=== PATIENT | female | born 1990 | race American Indian/Alaskan Native ===

== ENCOUNTER 2017-10-18 14:57 | Observation (INO) | payer OTHER ==
[2017-10-18] MEDS ORDERED: NACL 0.9% 1000 ML 1,000 ML IV ONE ×2 (15:46→17:10)
[2017-10-18] MEDS ORDERED: ZOFRAN IV ONE (15:46)
[2017-10-18] MEDS ORDERED: TYLENOL PO ONE (15:46)
--- NOTE | 2017-10-18 16:22 | Emergency Department Report ---
HPI - General Chief Complaint: Abdominal Pain Time Seen by Provider: 10/18/17 15:36 - HPI HPI: The patient is a 27-year-old female , EGA unknown, presents for evaluation of abdominal pain. The patient reports abdominal pain since awakening from sleep this morning, approximately 6 hours prior to my evaluation. She states her abdominal pain has been constant since onset, 10/10 in severity, crampy in quality, and is exacerbated with dry heaving. She has a space associated nausea and multiple episodes of nonbilious, nonbloody emesis. The patient denies fever, chills, night sweats, diarrhea, blood in the stool, dark tarry stool, dysuria, hematuria, flank pain, genital discharge, inability to pass flatus. ED Past Medical Hx - Past Medical History Previous Medical History?: Yes Additional medical history: childbirth - Surgical History Past Surgical History?: No - Social History Smoking Status: Never Smoker Substance Use Type: Alcohol ED Review of Systems ROS: Stated complaint: ABDOMINAL PAIN Other details as noted in HPI Constitutional: denies: fever ENT: denies: throat or neck pain Respiratory: denies: cough, shortness of breath Cardiovascular: denies: chest pain Endocrine: denies unexplained weight loss or gain Gastrointestinal: reports: abdominal pain, nausea Genitourinary: denies: dysuria Musculoskeletal: denies: leg swelling Skin: denies: rash Neurological: denies: headache Hematological/Lymphatic: denies: easy bleeding or easy bruising Psych: denies sadness or hopelessness Physical Exam - Physical Exam Vital Signs: Vital Signs 10/18/17 10/18/17 15:38 16:00 Temperature 97.9 F 97.6 F Pulse Rate 94 H 88 Respiratory 16 18 Rate Blood Pressure 86/52 Blood Pressure 90/60 [Right] O2 Sat by Pulse 99 97 Oximetry Physical Exam: General: well-nourished, well-developed, no acute distress Head: Normocephalic, atraumatic Eyes: normal sclera ENT: Mucous membranes are pale and dry Neck: No neck stiffness, no cervical adenopathy Respiratory: Breath sounds equal bilaterally, no wheezing, rales, or rhonchi Cardio: S1 and S2 present, no murmurs, rubs, gallops, capillary refill is delayed Abdomen: Normoactive bowel sounds, soft abdomen, epigastric tenderness to palpation present, no rigidity, no guarding or rebound tenderness Chest WALL/Back: No tenderness to palpation of the chest wall, no CVA tenderness with percussion Musc: No pitting edema Skin: No rash Neuro: no facial drooping, normal speech Psych: Normal affect ED Course Vital Signs 10/18/17 10/18/17 15:38 16:00 Temperature 97.9 F 97.6 F Pulse Rate 94 H 88 Respiratory 16 18 Rate Blood Pressure 86/52 Blood Pressure 90/60 [Right] O2 Sat by Pulse 99 97 Oximetry ED Medical Decision Making - Lab Data Result diagrams: 10/18/17 15:38 10/18/17 17:42 - Medical Decision Making The patient was seen and examined by myself. The patient is placed on a rn cardiac and continuous pulse ox. On initial evaluation, the patient was found to be in no distress. Evaluation orders are placed. IV access is established and the patient is given 1 L normal saline fluid bolus and Zofran for nausea, and a tablet of Tylenol for her pain. Lab results revealed elevated hCG level of 9000 elevated lactic acid of 6,, and leukocytosis, WBC 17, and otherwise labs were unrevealing. While awaiting ultrasound of the pelvis, the patient developed hypotension and significant tachycardia. The patient was given multiple normal saline fluid boluses. Multiple bedside reassessments were performed to assess patient's responsiveness to fluids resuscitation. A bedside ultrasound was performed by myself and revealed intra-abdominal fluid collection. As the patient is hypotensive with fluid in the abdomen, the on- call CHILD CARE ATTENDANT was contacted due to concern for ruptured ectopic . Dr. Martines presented to the emergency department and evaluated the patient at bedside. He agreed that the patient was exhibiting symptoms and signs of ectopic , and he agreed to take the patient to the OR for definitive treatment of her ectopic . 4 units of PRBCs were ordered. Formal ultrasound of the pelvis confirmed ruptured ectopic . Red Blood cell transfusion was initiated in the emergency department and the patient was admitted to the OR emergently. Critical Care Time: Yes Critical care time in (mins) excluding proc time.: 35 Critical care attestation.: Due to the critical nature of this patients presentation, which necessitated multiple bedside assessments, manipulation and supportive measures to prevent further life threatening deterioration, I would like to bill for a total of 35 minutes of critical care time. This was exclusive of any separately billable procedures. Critical Care Time: 35 min ED Disposition Clinical Impression: Ruptured ectopic , Hemorrhagic shock, Acute generalized abdominal pain Disposition: DC-09 OP ADMIT IP TO THIS HOSP Is pt being admited?: Yes Does the pt Need Aspirin: Yes Condition: Critical Instructions: Abdominal Pain (ED) Referrals: PRIMARY CARE, [Primary Care Provider] - 3-5 Days Time of Disposition: 17:04
[2017-10-18 17:05] LABS: Basophils # (Auto) 0.1 K/mm3 (0.0-0.1); Basophils % (Auto) 0.4 % (0.0-1.8); Eosinophils % (Auto) 0.1 % (0.0-4.3); Hematocrit 34.2 % (30.3-42.9); Hemoglobin 11.3 gm/dl (10.1-14.3); Lymphocytes # (Auto) 2.3 K/mm3 (1.2-5.4); Lymphocytes % (Auto) 12.9 % (13.4-35.0); Mean Corpuscular HGB Conc 33 % (30-34); Mean Corpuscular Hemoglobin 31 pg (28-32); Mean Corpuscular Volume 94 fl (79-97); Monocytes # (Auto) 1.4 K/mm3 (0.0-0.8); Monocytes % (Auto) 7.7 % (0.0-7.3); Platelet Count 291 K/mm3 (140-440); Red Blood Count 3.63 M/mm3 (3.65-5.03); Red Cell Distribution Width 13.7 % (13.2-15.2)
[2017-10-18] MEDS ORDERED: NACL 0.9% 500 ML 500 ML IV ONE (17:46)
[2017-10-18 18:01] LABS: INR 1.2 (0.87-1.13)
[2017-10-18 18:02] LABS: Partial Thromboplastin Time 25.6 Sec. (24.2-36.6)
[2017-10-18 18:08] LABS: BUN/Creatinine Ratio 16; Blood Urea Nitrogen 13 mg/dL (7-17); Calcium 9.6 mg/dL (8.4-10.2); Hemolysis Index 5; Lipase 20 units/L (13-60)
[2017-10-18 18:10] LABS: Alanine Aminotransferase 8 units/L (7-56); Albumin 4.2 g/dL (3.9-5)
--- NOTE | 2017-10-18 18:11 | Short Stay Summary ---
Short Stay Documentation Date of service: 10/18/17 Narrative H&P: C/O: Ruptured ectopic 27-year-old at ~ 3 wks via LMP presents with acute onset abdominal pain since early this AM per patient, she has positive test with beta-hCG ~ 9,000. In the emergency room, patient became acutely hypotensive with blood pressure systolic in the ~ 60s; she was acutely hydrated. Ultrasound shows hemoperitoneum, unable to locate ectopic at this time due to complex fluid collection in the abdomen. Removing hematocrit is ~ 11/34. SBP at this time is in the 100's Gynhx: Remarkable per patient Med/Sughx:None Meds:None ALL:NKDA On exam, she has an acute abdomen A: Ruptured ectopic -?Site unknown at this time P: -Will start transfusion of blood at this time -She has been consented -Proceed to do OR once available - History Past Medical History: No medical history Past Surgical History: No surgical history Social history: single, full code, no smoking - Allergies and Medications Current Medications: Allergies No Known Allergies Allergy (Unverified 10/18/17 15:38) Active Medications Sodium Chloride (Nacl 0.9% 1000 Ml) 1,000 mls @ 999 mls/hr IV BOLUS ONE Stop: 10/18/17 18:10 Piperacillin Sod/Tazobactam Sod (Zosyn/Ns 3.375gm/50ml) 3.375 gm in 50 mls @ 100 mls/hr IV Q6HR KATIE - Physical exam General appearance: severe distress Lungs: Clear to auscultation, Normal air movement Heart: Regular rate, Normal S1, Normal S2 Gastrointestinal: tenderness, guarding Female Genitourinary: deferred Extremities: no ischemia - Brief post op/procedure progress note Date of procedure: 10/18/17 Pre-op diagnosis: ectopic Post-op diagnosis: other (right cornual ectopic) Procedure: Laparoscopic excision of cornual ectopic Anesthesia: GETA Findings: Significant amount of hemoperitoneum, right cornual ectopic Surgeon: ZACARIAS CUENCA Estimated blood loss: other (2000 mL) Pathology: list (ectopic pieces) Specimen disposition: to lab Condition: stable - Hospital course Hospital course: Patient is status post Laparoscopic excision of right cornual ectopic and evacuation of hemoperitoneum. Patient had 2 liters of hemoperitoneum, she received 2 units of packed red blood cells and 900 mL of cell saver back Patient was admitted to the floor in stable condition for Observation. Postoperative course was unremarkable She is ambulating without difficulty, pain well controlled, adequate bowel bladder function. Discharge follow-up with her primary care physician in 3-5 days - Disposition Condition at discharge: Poor Disposition: DC-01 TO HOME OR SELFCARE - Discharge Diagnoses (1) Status post laparoscopic procedure Status: Acute (2) , ectopic, cornual or cervical Status: Acute (3) Hemoperitoneum due to rupture of right tubal ectopic Status: Acute (4) Anemia associated with acute blood loss Status: Acute Short Stay Discharge Plan Activity: advance as tolerated, no driving until cleared by PCP (no driving on narcotic), other (pelvic rest x 2 weeks) Weight Bearing Status: Weight Bear as Tolerated Diet: regular Wound: open to air, remove dressing (remove dressing tomorrow) Follow up with: PRIMARY CARE, [Primary Care Provider] - 3-5 Days Prescriptions: HYDROcodone/ACETAMINOPHEN [[place] 5-325 Tablet] 1 each PO Q6HR #10 tablet Ibuprofen [Motrin 600 MG tab] 600 mg PO Q8H PRN #30 tablet PRN Reason: Pain Multivitamin with Iron [Multivitamins with Iron] 1 each PO DAILY #30 tablet
[2017-10-18 18:16] LABS: Bilirubin,Direct < 0.2 mg/dL (0-0.2)
[2017-10-18] MEDS: ZOSYN/NS 3.375GM/50ML 3.375 GM/50 ML BAG IV SCH (18:42)
[2017-10-18] MEDS ORDERED: DIPRIVAN 10 MG/ML IV ONE (18:43)
[2017-10-18] MEDS ORDERED: DILAUDID ONE (18:43)
[2017-10-18] MEDS ORDERED: ZEMURON IV ONE (18:44)
[2017-10-18 18:49] LABS: Bacteria,Urine 1+ /HPF (Negative); Bilirubin,Urine NEG (Negative); Blood,Urine MOD (Negative); Color,Urine Yellow (Yellow); Mucus,Urine 1+ /HPF; Protein,Urine <15 mg/dL mg/dL (Negative); Urobilinogen,Urine < 2.0 mg/dL (<2.0)
[2017-10-18] MEDS ORDERED: ACD-A 500 ML IV ONE (18:52)
[2017-10-18] MEDS ORDERED: XYLOCAINE MPF 2% ONE (18:53)
[2017-10-18] MEDS ORDERED: DECADRON ONE (18:56)
[2017-10-18] MEDS ORDERED: AMIDATE IV ONE (19:13)
--- NOTE | 2017-10-18 19:13 | Ultrasound Report ---
FINAL REPORT EXAM: US OB < = 14 WEEKS FETUS HISTORY: ab pain, preg COMPARISON: None available. TECHNIQUE: Several real-time grayscale and color Doppler images were obtained. Transabdominal and transvaginal exam. FINDINGS: Uterus measures 8.1 x 4.0 x 4.5 centimeters. Endometrial stripe measures 11 millimeters. The uterus is partially retroverted. No IUP demonstrated. Right ovary measures 3.2 x 1.6 x 3.8 centimeters and is seen on transabdominal exam only. The left ovary measures 4.1 x 2.9 x 2.3 centimeters. There is vascular flow to the bilateral ovaries. Superior to the right fundal margin the uterus, the technologist demonstrates a 2.4 x 1.8 x 2.2 centimeter structure with central cystic area. This is concerning for possible ectopic . Technologist demonstrates this to be separate from the right ovary on the transabdominal exam. Small to moderate amount of free fluid is demonstrated. No dulce hemorrhagic component by ultrasound. IMPRESSION: At the superior margin of the uterus on the right, there is a 2.4 x 1.8 x 2.2 centimeter structure with peripheral vascularity and central anechoic area. This is concerning for ectopic . This is separate from the right ovary and is best seen on the transabdominal exam. Small to moderate amount of free fluid in the pelvis. No dulce hemorrhagic component. No IUP. There is vascular flow to the bilateral ovaries.
[2017-10-18] MEDS ORDERED: ZOFRAN ONE ×2 (19:22→20:44)
[2017-10-18] MEDS ORDERED: NEO SYNEPHRINE/NS Syringe(OR USE) IV ONE (19:22)
[2017-10-18] MEDS ORDERED: NACL 0.9% 1000 ML 1,000 ML ONE (20:06)
[2017-10-18] MEDS ORDERED: MARCAINE 0.5% INFILTRATI ONE (20:51)
[2017-10-18] MEDS ORDERED: ZOFRAN IV PRN ×2 (21:08→21:21)
[2017-10-18] MEDS ORDERED: TORADOL IV PRN (21:08)
[2017-10-18] MEDS ORDERED: DILAUDID IV PRN (21:08)
--- NOTE | 2017-10-18 21:10 | Anesthesia Day of Surgery ---
Anesthesia Day of Surgery - Day of Surgery Patient Examined: Yes Patient H&P Reviewed: Yes Patient is NPO: Yes
--- NOTE | 2017-10-18 21:10 | Anesthesia Consultation ---
Anesthesia Consult and Med Hx Date of service: 10/18/17 - Airway Anesthetic Teeth Evaluation: Good ROM Head & Neck: Adequate Mental/Hyoid Distance: Adequate Mallampati Class: Class I Intubation Access Assessment: Good - Pulmonary Exam CTA: Yes - Cardiac Exam Cardiac Exam: RRR - Pre-Operative Health Status ASA Pre-Surgery Classification: ASA2, Emergency Proposed Anesthetic Plan: General
--- NOTE | 2017-10-18 21:13 | Post Anesthesia Evaluation ---
- Post Anesthesia Evaluation Patient Participated: Yes Airway Patent: Yes Stable Respiratory Function: Yes Nausea/Vomiting: No Temp > 96.8F: Yes Pain Manageable: Yes Adequeate Hydration: Yes Anesthesia Complications: No
--- NOTE | 2017-10-18 21:18 | Operative Report ---
Operative Report Operative Report: DATE: 10/18/2017 PREOPERATIVE DIAGNOSIS: 27-year-old at ~ 3 weeks gestation, Ectopic of unknown location POSTOP DIAGNOSIS: Right Cornual ectopic, 2 L of hemoperitoneum NAME OF PROCEDURE: Diagnostic laparoscopy, excision of right cornual ectopic, evacuation of hemoperitoneum SURGEON: ZACARIAS CUENCA MD VALVE AND REGULATOR REPAIRER: None ANESTHESIA: General endotracheal EBL: 2000 mL PATHOLOGY SPECIMEN: Pieces of ectopic URINE OUTPUT:[] CELL SAVER: 900 mL returned FINDINGS: Significant amount of hemoperitoneum, right cornual ectopic DESCRIPTION OF PROCEDURE: After informed consent, patient was taken to the operating room emergently were she was placed in the dorsal lithotomy position and then was prepped and draped in a sterile fashion. Attention was then turned to the patient's vagina, where a Lindo speculum was placed without difficulty. Single-tooth tenaculum was used to grab the anterior lip of the uterus which was sounded to ~ 7 cm, the 91 [address] Wireles uterine manipulator was then advanced into the patient's fundus without difficulty as means to manipulate the uterus. Attention was then turned to Patient's abdomen, where a 2-3 cm incision was made in the patient's umbilicus fold. S retractors were used to dissect away the subcutaneous tissue and fascia was grabbed with Allises. An incision was made in the midline and peritoneal cavity was entered bluntly. Fascial edges were tagged with 0 Vicryl; the Ugalde trocar was advanced into the patient's abdomen without difficulty. CO2 Gas was then used to obtain intra-abdominal insufflation. Observation showed above stated findings; under direct visualization a 10 mm port was advanced into the patient's abdomen without difficulty under direct visualization on the LLQ. Then a 5 mm trocar was advanced in the right lower quadrant. Using a 10 mm LigaSure, the interstitial ectopic was grasped cauterized and transected. This was then removed from the surgical field. We then used suction irrigation attached to the Cell Saver to evacuate the hemoperitoneum. After evacuation, cauterized site was visualized with no bleeding noted. We then reduced the CO2 pressure and continue to observe the site with no bleeding noted. Tisseel hemostatic agent was then applied over the cauterized site. All instruments were then removed under direct visualization with no bleeding noted. Instrument counts were correct 2 , patient was aroused and taken to PACU in stable condition thank you.
[2017-10-18] MEDS ORDERED: REGLAN IV PRN (21:21)
[2017-10-18] MEDS ORDERED: TYLENOL PO PRN (21:21)
[2017-10-18] MEDS ORDERED: LACTATED RINGERS 1,000 ML IV SCH (22:00)
[2017-10-18] MEDS ORDERED: D5LR 1,000 ML IV SCH (22:00)
[2017-10-18] MEDS: MORPHINE IV PRN (23:31)
[2017-10-19] MEDS: ZOSYN/NS 3.375GM/50ML 3.375 GM/50 ML BAG IV SCH ×2 (00:08→05:56)
[2017-10-19] MEDS: NORCO 5/325 PO PRN ×2 (03:50→12:14)
[2017-10-19] MEDS: MORPHINE IV PRN (06:25)
[2017-10-19 08:51] LABS: Hematocrit 36.7 % (30.3-42.9); Hemoglobin 11.7 gm/dl (10.1-14.3)
[2017-10-19 17:33] VITALS: BP 103/70
== END 2017-10-19 15:55 | disposition home or self-care (01) ==
LOC: ED 14:57 → OR 19:40 → OB 21:21
PROVIDERS: ADMIT Obstetrics & Gynecology Gynecology; ATTEND Obstetrics & Gynecology Gynecology
DX: O00.80 Other ectopic pregnancy without intrauterine pregnancy (principal); K66.1 Hemoperitoneum; O99.011 Anemia complicating pregnancy, first trimester; D62 Acute posthemorrhagic anemia; Z3A.01 Less than 8 weeks gestation of pregnancy
CPT/HCPCS: 36415; 36430; 59150; 76801; 76817; 80048; 80074; 81001; 82140; 83690; 84702; 85014; 85018; 85025; 85610; 85730; 86850; 86900; 86901; 86920; 87210; 88305; 96365; 96375; 96376; C9250; G0378; J1100; J1170; J2270; J2370; J2405; J2543; J2704; J7030; J7121; P9016; 87591

== ENCOUNTER 2017-11-04 11:20 | Emergency (ER) | payer OTHER ==
[2017-11-04 11:52] VITALS: BP 107/59
--- NOTE | 2017-11-04 14:18 | Emergency Department Report ---
ED Recheck HPI - General Chief Complaint: Laceration/Recheck/Suture Stated Complaint: STITCHS OUT OF PLACE IN STOMACH Time Seen by Provider: 11/04/17 14:13 Source: patient Mode of arrival: Ambulatory Limitations: No Limitations - History of Present Illness Initial Comments: This is a 27-year-old female nontoxic well in appearance with no signs of distress present to the ER with suture removal from right lower quadrant abdominal area. Patient stated that she had a surgical incision for ectopic on 10/19/[address] Desai another follow-up with the surgeon. Patient is uncertain how many sutures that has been placed. Patient denies any pus or drainage. Denies any swelling or redness. Patient denies any abdominal pain, fever, chills, nausea, vomiting, chest pain, short of breath, headache or stiff neck. Patient denies any allergies or significant past medical history. MD Complaint: suture/staple removal Symptoms Since Prior Visit: no new symptoms, improved Associated Symptoms: none. denies: fever, chills, chest pain, shortness of breath, rash, malaise, nasuea, abdominal pain - Related Data Previous Rx's Medication Instructions Recorded Last Taken Type HYDROcodone/ACETAMINOPHEN [[place] 1 each PO Q6HR #10 tablet 10/18/17 Unknown Rx 5-325 Tablet] Ibuprofen [Motrin 600 MG tab] 600 mg PO Q8H PRN #30 tablet 10/18/17 Unknown Rx Multivitamin with Iron 1 each PO DAILY #30 tablet 10/18/17 Unknown Rx [Multivitamins with Iron] Allergies Allergy/AdvReac Type Severity Reaction Status Date / Time No Known Allergies Allergy Unverified 10/18/17 15:38 ED Review of Systems ROS: Stated complaint: STITCHS OUT OF PLACE IN STOMACH Other details as noted in HPI Constitutional: denies: chills, fever Eyes: denies: eye pain, eye discharge, vision change ENT: denies: ear pain, throat pain Respiratory: denies: cough, shortness of breath, wheezing Cardiovascular: denies: chest pain, palpitations Endocrine: no symptoms reported Gastrointestinal: denies: abdominal pain, nausea, diarrhea Genitourinary: denies: urgency, dysuria, discharge Musculoskeletal: denies: back pain, joint swelling, arthralgia Skin: denies: rash, lesions Neurological: denies: headache, weakness, paresthesias Psychiatric: denies: anxiety, depression Hematological/Lymphatic: denies: easy bleeding, easy bruising ED Past Medical Hx - Past Medical History Hx Congestive Heart Failure: No Hx Diabetes: No Hx Asthma: No Hx COPD: No Additional medical history: childbirth - Surgical History Additional Surgical History: ectopic - Social History Smoking Status: Never Smoker Substance Use Type: None - Medications Home Medications: Home Medications Medication Instructions Recorded Confirmed Last Taken Type HYDROcodone/ACETAMINOPHEN [[place] 1 each PO Q6HR #10 tablet 10/18/17 Unknown Rx 5-325 Tablet] Ibuprofen [Motrin 600 MG tab] 600 mg PO Q8H PRN #30 tablet 10/18/17 Unknown Rx Multivitamin with Iron 1 each PO DAILY #30 tablet 10/18/17 Unknown Rx [Multivitamins with Iron] ED Physical Exam - General Limitations: No Limitations General appearance: alert, in no apparent distress - Head Head exam: Present: atraumatic, normocephalic - Eye Eye exam: Present: normal appearance - ENT ENT exam: Present: mucous membranes moist - Neck Neck exam: Present: normal inspection - Respiratory Respiratory exam: Present: normal lung sounds bilaterally. Absent: respiratory distress - Cardiovascular Cardiovascular Exam: Present: regular rate, normal rhythm. Absent: systolic murmur, diastolic murmur, rubs, gallop - GI/Abdominal GI/Abdominal exam: Present: soft, normal bowel sounds, other (unknown number of sutures seen to RLQ with no signs of cellulitis, abscess or swelling noted. No deschince noted.). Absent: distended, tenderness, guarding, rebound, rigid, diminished bowel sounds - Rectal Rectal exam: Present: deferred - Extremities Exam Extremities exam: Present: normal inspection - Back Exam Back exam: Present: normal inspection - Neurological Exam Neurological exam: Present: alert, oriented X3 - Psychiatric Psychiatric exam: Present: normal affect, normal mood - Skin Skin exam: Present: warm, dry, intact, normal color. Absent: rash ED Course Vital Signs 11/04/17 11:49 Temperature 98.4 F Pulse Rate 79 Respiratory 16 Rate Blood Pressure 107/59 O2 Sat by Pulse 100 Oximetry - Reevaluation(s) Reevaluation #1: 11/04/17 14:17 Patient is speaking in full sentences with no signs of distress noted. ED Recheck MDM - Medical Decision Making This is a 27-year-old female that presented to the ER for suture removal. Patient is stable and was examined by me. Patient was discussed with Dr. Ramirez and agrees to have patient follow-up with surgeon for suture removal. Previous visit patient did have ectopic and was surgically operated on by Dr. Cuenca. Upon reading the procedure note I did not come across any numbers digit has been placed to the area. Due to this reason I will have patient follow up with the surgeon for suture removal. There is no signs of any cellulitis or rash formation. Well-healing. At time of discharge, the patient does not seem toxic or ill in appearance. No acute signs of distress noted. Patient agrees to discharge treatment plan of care. No further questions noted by the patient. Critical care attestation.: If time is entered above; I have spent that time in minutes in the direct care of this critically ill patient, excluding procedure time. ED Disposition Clinical Impression: Encounter for postoperative wound check Disposition: DC-01 TO HOME OR SELFCARE Is pt being admited?: No Does the pt Need Aspirin: No Condition: Stable Additional Instructions: Follow-up with a Dr. Cuenca in 2-3 days or if symptoms worsen and continue return to emergency room as soon as possible. Referrals: PRIMARY CAREMD [Primary Care Provider] - 3-5 Days AZCARIAS CUENCA MD [Staff Physician] - 3-5 Days [facility] [Provider Group] - 3-5 Days
== END 2017-11-04 14:34 | disposition home or self-care (01) ==
LOC: ED 11:20
DX: Z48.01 Encounter for change or removal of surgical wound dressing (principal); S31.109D Unspecified open wound of abdominal wall, unspecified quadrant without penetration into peritoneal cavity, subsequent encounter; X58.XXXD Exposure to other specified factors, subsequent encounter